=== PATIENT | male | born 1990 | race Caucasian/White ===

== ENCOUNTER 2025-04-24 18:11 | Emergency (ER) | payer OTHER ==
[~2025-04-24] VITALS: Ht 175.3 cm; Wt 75.0 kg
[2025-04-24 18:26] VITALS: BP 116/53; PULSE 61; RESP 18; TEMP 37; O2SAT 100
[2025-04-24] MEDS: IBUPROFEN 600MG TABLET PO ONE (19:32)
== END 2025-04-24 19:35 | disposition home or self-care (01) ==
LOC: ER 18:11
DX: S50.02XA Contusion of left elbow, initial encounter (principal); M54.9 Dorsalgia, unspecified; Z79.899 Other long term (current) drug therapy; V43.52XA Car driver injured in collision with other type car in traffic accident, initial encounter; Y93.89 Activity, other specified; Y92.89 Other specified places as the place of occurrence of the external cause; Y99.8 Other external cause status
CPT/HCPCS: 99282